=== PATIENT | female | born 1975 | race Caucasian/White ===

== ENCOUNTER → 2020-08-28 14:36 | Outpatient (BNVA) | payer MEDICARE, SELFPAY | PROVIDERS: Family Provider Family Medicine; PCP Family Medicine; Referring Provider Family Medicine; Visit Provider Specialist | DX: M25.562 Pain in left knee (principal); Z96.651 Presence of right artificial knee joint | CPT/HCPCS: 73560; 73565 ==

== ENCOUNTER 2020-10-05 11:39 | Outpatient (CLI) | payer MEDICARE, MEDICAID, SELFPAY ==
--- NOTE | 2020-10-05 12:00 | USCV_ITS ---
Cathie Cheung Age: 45 Gender: F : 1975 Exam Date: 10/05/2020 12:31 Ordering Phys: Jessica Pierre MD ([email or web address]) Technologist: JOSE LUIS [place] [facility] [place]: Murmur BP: / HR: 75 Rhythm: Sinus Technical Quality: Suboptimal MEASUREMENTS (Male / Female) Normal Values 2D ECHO LV Diastolic Diameter PLAX 3.4 cm 4.2 - 5.9 / 3.9 - 5.3 cm LV Systolic Diameter PLAX 2.1 cm LV Chamber Size 3.3 cm IVS Diastolic Thickness 1.3 cm 0.6 - 1.0 / 0.6 - 0.9 cm IVS Systolic Thickness 1.8 cm LVPW Diastolic Thickness 1.8 cm 0.6 - 1.0 / 0.6 - 0.9 cm LVPW Systolic Thickness 2.1 cm RV Chamber Size 2.8 cm LVOT Diameter 2.0 cm LV Ejection Fraction 2D Teich 68.1 % LV Ejection Fraction MOD 2C 53.2 % LV Ejection Fraction 2C AL 55.5 % LA Diameter 2.8 cm LA Width 2.9 cm LA Height 4.2 cm RA Width 2.3 cm RA Height 3.1 cm Aorta at Sinotubular Diameter 2.3 cm M-MODE LV Diastolic Diameter MM 5.1 cm 4.2 - 5.9 / 3.9 - 5.3 cm LV Systolic Diameter MM 3.0 cm LV Ejection Fraction MM Teich 71.4 % IVS Diastolic Thickness MM 0.7 cm 0.6 - 1.0 / 0.6 - 0.9 cm IVS Systolic Thickness MM 1.3 cm LVPW Diastolic Thickness MM 0.9 cm 0.6 - 1.0 / 0.6 - 0.9 cm LVPW Systolic Thickness MM 1.4 cm Aortic Annulus Diameter 2.8 cm LA Ao Ratio MM 1.1 MV E Point Septal Separation 0.8 cm DOPPLER AV Peak Velocity 173.0 cm/s LVOT Peak Velocity 103.0 cm/s AV Area Cont Eq vti 1.9 cm squared AV Area Cont Eq pk 2.0 cm squared MV Area PHT 3.9 cm squared Mitral E to A Ratio 1.1 MV E' Velocity 52.0 cm/s Mitral E to MV E' Ratio 6.9 Mitral E to LV E' Lateral Ratio 7.6 Mitral E to LV E' Septal Ratio 6.3 TR Peak Velocity 177.3 cm/s TR Peak Gradient 12.6 mmHg TV Peak E Velocity 55.0 cm/s Right Atrial Pressure 3.0 mmHg Pulmonary Artery Systolic Pressu 15.6 mmHg PV Peak Velocity 109.0 cm/s RV Acceleration Time 0.1 s RV Ejection Time 0.5 s RV AcT/ET 0.2 FINDINGS Left Ventricle Normal left ventricular size and systolic function with no regional wall motion abnormalities. Left ventricular ejection fraction is estimated at 70 %. Normal diastolic function. Right Ventricle Normal right ventricular size and systolic function. Right ventricular systolic pressure 15.6 mmHg. Right Atrium Normal right atrial size. Left Atrium Normal left atrial size. Mitral Valve Thickened mitral valve. No mitral valve stenosis. No mitral valve regurgitation. Aortic Valve Aortic valve not well visualized. No aortic valve stenosis. No aortic valve regurgitation. Tricuspid Valve Structurally normal tricuspid valve. Trace tricuspid valve regurgitation. Pulmonic Valve Pulmonic valve not well visualized. No pulmonary valve stenosis. Pericardium No pericardial effusion. Aorta Aorta not well visualized. CONCLUSIONS 1. This is a technically difficult study. Optison was used per protocol. 2. Normal left ventricular size and systolic function with no regional wall motion abnormalities. Left ventricular ejection fraction is estimated at 70 %. Normal diastolic function. 3. No significant valvular abnormality. 4. Normal pulmonary artery pressure. 5. When compared to previous echocardiogram dated 03/14/2017, no significant change. Jessica Pierre MD (Electronically Signed) Final Date: 08 October 2020 12:55 S
[2020-10-05] MEDS: perflutren protein-a microsphr 0.22 mg/mL SDV 3 mL IV (12:50)
== END 2020-10-05 11:40 | disposition home or self-care (01) ==
PROVIDERS: PCP Family Medicine; Visit Provider Internal Medicine Cardiovascular Disease
DX: F17.200 Nicotine dependence, unspecified, uncomplicated (principal); E78.5 Hyperlipidemia, unspecified; R00.2 Palpitations; R01.1 Cardiac murmur, unspecified
CPT/HCPCS: C8929; Q9956